=== PATIENT | female | born 1935 | race Caucasian/White ===

== ENCOUNTER 2017-08-19 07:26 | Day surgery (SDC) | payer OTHER ==
[2017-08-02 13:39] VITALS: BMI 42.0
--- NOTE | 2017-08-02 14:19 | PAT Medication Instructions ---
Service Date Aug 02, 2017. Current Home Medication List Amitriptyline Hcl (Elavil), 25 MG PO HS Amlodipine (Norvasc), 5 MG PO QAM Atorvastatin (Lipitor), 40 MG PO HS Calcium/Vitamin D (Os-Carlitos 500 Plus D), 1 TAB PO BID Ferrous Sulfate (Kp Ferrous Sulfate), 1 TAB PO TID Furosemide (Lasix), 40 MG PO QAM Levothyroxine Sodium (Levothyroxine Sodium), 1 TAB PO QAM Lorazepam (Ativan), 0.5 MG PO TID PRN for Anxiety Meclizine Hcl (Meclizine Hcl), 1 TAB PO BID Metoprolol Tartrate (Lopressor) (Lopressor), 25 MG PO BID Nitroglycerin (Nitrostat), 0.4 MG UT PRN Oxybutynin Chloride Er (Ditropan Xl), 10 MG PO QAM Paroxetine (Paxil), 40 MG PO QAM Potassium Ext Rel (Klor-Con), 20 MEQ PO QAM Senna (Senokot), 1 TAB PO UD PRN for Constipation Sennosides-Docusate Sodium (Stool Softener), 1 TAB PO BID Simethicone (Gas-X), 1 TAB PO UD PRN for GAS Warfarin Sod (Coumadin), 2.5 MG PO WED/SAT Warfarin Sodium (Coumadin), 5 MG PO M,T,R,F,SUN Medication Instructions For Your Scheduled Surgery - Check with surgeon and coumadin clinic for instructions: Warfarin Sod (Coumadin), 2.5 MG PO WED/SAT Warfarin Sodium (Coumadin), 5 MG PO M,T,R,F,SUN - Hold the following medications the morning of surgery: Sennosides-Docusate Sodium (Stool Softener), 1 TAB PO BID Simethicone (Gas-X), 1 TAB PO UD PRN for GAS Senna (Senokot), 1 TAB PO UD PRN for Constipation Potassium Ext Rel (Klor-Con), 20 MEQ PO QAM Oxybutynin Chloride Er (Ditropan Xl), 10 MG PO QAM Ferrous Sulfate (Kp Ferrous Sulfate), 1 TAB PO TID Furosemide (Lasix), 40 MG PO QAM Calcium/Vitamin D (Os-Carlitos 500 Plus D), 1 TAB PO BID - Take the following medications the morning of surgery with a sip of water: Paroxetine (Paxil), 40 MG PO QAM Metoprolol Tartrate (Lopressor) (Lopressor), 25 MG PO BID Nitroglycerin (Nitrostat), 0.4 MG UT PRN (if needed) Meclizine Hcl (Meclizine Hcl), 1 TAB PO BID Levothyroxine Sodium (Levothyroxine Sodium), 1 TAB PO QAM Lorazepam (Ativan), 0.5 MG PO TID PRN for Anxiety (if needed) Amlodipine (Norvasc), 5 MG PO QAM - Take the following medications as scheduled the night before surgery: Sennosides-Docusate Sodium (Stool Softener), 1 TAB PO BID Simethicone (Gas-X), 1 TAB PO UD PRN for GAS (if needed) Senna (Senokot), 1 TAB PO UD PRN for Constipation (if needed) Metoprolol Tartrate (Lopressor) (Lopressor), 25 MG PO BID Nitroglycerin (Nitrostat), 0.4 MG UT PRN (if needed) Meclizine Hcl (Meclizine Hcl), 1 TAB PO BID Lorazepam (Ativan), 0.5 MG PO TID PRN for Anxiety (if needed) Ferrous Sulfate (Kp Ferrous Sulfate), 1 TAB PO TID Calcium/Vitamin D (Os-Carlitos 500 Plus D), 1 TAB PO BID Atorvastatin (Lipitor), 40 MG PO HS Amitriptyline Hcl (Elavil), 25 MG PO HS If you have any questions please call us at [phone] or [phone] or [phone]
[2017-08-02 15:34] LABS: BASO % 0.6 %; BASO ABS # 0.03 K/uL (0-0.2); EOS % 7.5 %; EOS ABS # 0.38 K/uL (0-0.5); HEMATOCRIT 39.9 % (37-47); HEMOGLOBIN 13.1 g/dL (12.0-16.0); LYMPH % 33.3 %; MEAN CELL VOLUME 95.5 fL (80-100); MEAN CORPUSCULAR HEMOGLOBIN 31.3 pg (25-34); MEAN CORPUSCULAR HGB CONC 32.8 g/dl (32-36); MEAN PLATELET VOLUME 9.5 fL (7.4-10.4); MONO % 10.4 %; MONO ABS # 0.53 K/uL (0.11-0.59); NEUT % 48.2 %; NEUT ABS # 2.46 K/uL (1.4-6.5); PLATELET COUNT 260 K/uL (130-400); RED CELL DISTRIBUTION WIDTH CV 13.9 % (11.5-14.5); RED CELL DISTRIBUTION WIDTH SD 48.7 fL (36.4-46.3)
[2017-08-02 16:25] LABS: CALCIUM 9.2 mg/dl (8.5-10.1); CREATININE 0.68 mg/dl (0.60-1.20); POTASSIUM 4.2 mmol/L (3.5-5.1)
[~2017-08-19] VITALS: Ht 152.4 cm; Wt 99.2 kg
[~2017-08-19 07:26] MED LIST: AMLO-110 PO; AMT50 PO; ATOR-24 PO; CALC500C70 PO; CMD/25 PO; FERR1TAB13 PO; FRS/40 PO; LEVO75TA5 PO; LORA-741 PO; MECL1TAB42 PO; METO25TA56 PO; NTRGSL/4 UT; OXYB10TA PO; PARO1TAB29 PO; POTA20TA16 PO; SENN-61 PO; SENNTAB23 PO; SIME80CH PO; WARF5TAB90 PO
[2017-08-19] MEDS ORDERED: EpHEDrine SULFATE INJ 50 MG/ML AMP IV PRN (08:00)
[2017-08-19] MEDS ORDERED: ONDANSETRON INJ 2 MG/ML 2 ML VIAL IV PRN (08:00)
[2017-08-19] MEDS ORDERED: ATROPINE SULFATE 0.1 MG/ML 5ML SYR IV PRN (08:00)
[2017-08-19] MEDS ORDERED: FENTANYL CITRATE INJ 50 MCG/1 ML 2 ML VIAL IV PRN (08:00)
[2017-08-19 08:09] VITALS: BP 152/88; PULSE 92; TEMP 36.7; O2SAT 98; Ht 152.4 cm; Wt 99.2 kg
--- NOTE | 2017-08-19 08:10 | History and Physical ---
History & Physical Date Aug 19, 2017. Chief Complaint Hematochezia History of Present Illness The patient is a 81 year old female with complaints of hematochezia. I first saw the patient on 07/18/2017. At that time she described bleeding. She has had hemorrhoids for many years. Over the last month to 2 months the bleeding seemed to have increased in amount. It was occurring with every bowel movement. It occasionally occurred with urination but she didn't not think it accompanied the urine. She had no perianal pain. There was some mild discomfort in the lower abdomen preceding a bowel movement but that resolved after she completed the bowel movement. The amount of blood was small to enough to make the bowl water red. She is on Coumadin having had a pulmonary embolus in the early 1999. She had no diarrhea. She is frequently constipated and was entering regimens of [id number] medications to treat as much as possible. She has had nausea and vomiting on occasion but over the last few weeks that is resolved. She stopped her Coumadin 6 days ago. Over the last 5 days she has had no bleeding whatsoever with her bowel movements. Past Medical/Surgical History Past medical history: Anxiety Depression Hiatal hernia dyslipidemia and GERD Hypertension Hypothyroidism Obesity Phlebitis and thrombophlebitis Pulmonary embolism Reflux esophagitis Past surgical history: Elbow fracture repair Pacemaker placement Revision of ulnar nerve Vaginal hysterectomy Multiple EGDs Multiple colonoscopies Allergies Coded Allergies: Alendronate (Verified Allergy, Unknown, PATIENT UNURE OF RXN, STATES THEY JUST TOLD HER TO STOP IT, 08/02/17) Lisinopril (Verified Allergy, Unknown, DRY COUGH, 08/02/17) Procaine (Verified Allergy, Unknown, TONGUE SWELLING, 08/02/17) Home Medications Scheduled Amitriptyline Hcl (Elavil), 25 MG PO HS Amlodipine (Norvasc), 5 MG PO QAM Atorvastatin (Lipitor), 40 MG PO HS Calcium/Vitamin D (Os-Carlitos 500 Plus D), 1 TAB PO BID Ferrous Sulfate (Kp Ferrous Sulfate), 1 TAB PO TID Furosemide (Lasix), 40 MG PO QAM Levothyroxine Sodium (Levothyroxine Sodium), 1 TAB PO QAM Meclizine Hcl (Meclizine Hcl), 1 TAB PO BID Metoprolol Tartrate (Lopressor) (Lopressor), 25 MG PO BID Nitroglycerin (Nitrostat), 0.4 MG UT PRN Oxybutynin Chloride Er (Ditropan Xl), 10 MG PO QAM Paroxetine (Paxil), 40 MG PO QAM Potassium Ext Rel (Klor-Con), 20 MEQ PO QAM Sennosides-Docusate Sodium (Stool Softener), 1 TAB PO BID Warfarin Sod (Coumadin), 2.5 MG PO WED/SAT Warfarin Sodium (Coumadin), 5 MG PO M,T,R,F,SUN Scheduled PRN Lorazepam (Ativan), 0.5 MG PO TID PRN for Anxiety Senna (Senokot), 1 TAB PO UD PRN for Constipation Simethicone (Gas-X), 1 TAB PO UD PRN for GAS Physical Examination Skin: warm/dry Head: normocephalic Respiratory/Chest: lungs clear, normal breath sounds Cardiovascular: regular rate, rhythm Abdomen / GI: normal bowel sounds, non tender Back: normal inspection Extremities: normal inspection Diagnosis This patient has a history of hematochezia which is resolved after stopping her Coumadin. He has a history of hemorrhoids. Plan of Treatment Lungs performed colonoscopy to be sure there is not more proximal etiology for the bleeding other than the hemorrhoids while she is on Coumadin. I previously explained the procedure and the possible complications and she signed consent form.
[2017-08-19 08:41] LABS: PTT PATIENT 26.3 SECONDS (21.0-31.0)
[2017-08-19] MEDS ORDERED: PROPOFOL IV EMULSION 10 MG/ML 20 ML VIAL IV ONE ×2 (08:48→09:28)
[2017-08-19] MEDS ORDERED: ONDANSETRON INJ 2 MG/ML 2 ML VIAL ONE (09:28)
--- NOTE | 2017-08-19 09:45 | [facility] Post Operative Brief Note ---
Immediate Operative Summary Operative Date Aug 19, 2017. Pre-Operative Diagnosis Hematochezia Post-Operative Diagnosis Polyp ascending colon, diverticulosis of sigmoid Procedure(s) Performed Colonoscopy with Polypectomy Surgeon Dr. Ramon Machado Supervisor Roving Surgeon(s) none Estimated Blood Loss 0 cc Findings See Below See dictation Specimens none per surgeon Drains None Anesthesia Type MAC Complication(s) none Disposition Disposition: SDU
--- NOTE | 2017-08-19 09:47 | Discharge Instructions ---
Endoscopy Patient Instructions Date / Procedure(s) Performed Aug 19, 2017. Colonoscopy Allergy Information Coded Allergies: Alendronate (Verified Allergy, Unknown, PATIENT UNURE OF RXN, STATES THEY JUST TOLD HER TO STOP IT, 08/19/17) Lisinopril (Verified Allergy, Unknown, DRY COUGH, 08/19/17) Procaine (Verified Allergy, Unknown, TONGUE SWELLING, 08/19/17) Discharge Date / Findings Aug 19, 2017. One polyp in the ascending colon and sigmoid diverticulosis Provider Instructions Activity Restrictions - No exercising or heavy lifting for 24 hours. - Do not drink alcohol the day of the procedure. - Do not drive a car or operate machinery until the day after the procedure. - Do not make any important decisions or sign important papers in 24 hours after the procedure. Following Day: - Return to full activity which may include returning to work/school. Diet Start your diet with liquids and light foods (jello, soup, juice, toast). Then eat your usual diet if not nauseated. Treatment For Common After Affects For mild abdominal pain, bloating, or excessive gas: - Rest - Eat lightly - Lie on right side Follow-Up Information Follow-up with Ramon Machado MD as scheduled Anesthesia Information What You Should Know You have had a procedure that required some medicine to reduce anxiety and discomfort. This treatment is called moderate sedation. After receiving the treatment, you may be sleepy, but you will be able to breathe on your own. The effects of the treatment may last for several hours. Follow these instructions along with Activity/Diet recommendations noted above: * Do NOT do anything where dizziness or clumsiness would be dangerous. * Rest quietly at home today, then you can be up and about tomorrow. * Have a responsible person stay with you the rest of today. * You may have had an I.V. today. If so, you may take the dressing off later today. Recommendations Call your doctor if: * Trouble breathing * Continuous vomiting for more than 24 hours * Temperature above 101 degrees * Severe abdominal pain or bloating * Pain not relieved by pain medicine ordered * There is increased drainage or redness from any incision * A large amount of rectal bleeding greater than 2-3 tablespoons. (If you had a polyp/s removed or have hemorrhoids, a small amount of blood - from the rectum is to be expected.) * You have any unanswered questions or concerns. IN THE EVENT OF A SERIOUS EMERGENCY, GO TO THE NEAREST EMERGENCY ROOM Your discharge instructions were prepared by provider Ramon Machado. Patient Instructions Signature Page Shawna Jerry Patient (or Guardian) Signature/Date: I have read and understand the instructions given to me by my caregivers. Caregiver/RN/Doctor Signature/Date: The above-named patient and/or guardian has received patient instructions on this date. + Original Patient Signature Page (only) stays with chart. Please make copy for patient.
[2017-08-19 09:52] VITALS: BP 127/61; PULSE 87; TEMP 36.3; O2SAT 100
[2017-08-19 10:22] VITALS: BP 120/63; PULSE 89; TEMP 36.3; O2SAT 99
--- NOTE | 2017-08-19 10:58 | Anesthesiology Progress Note ---
Anesthesia Post Op Note Date & Time Aug 19, 2017 at 10:58 Vital Signs Pain Intensity: 0 Vital Signs Past 12 Hours Date Time Temp Pulse Resp B/P (MAP) Pulse Ox O2 Delivery O2 Flow Rate FiO2 08/19/17 10:22 36.3 89 18 120/63 99 Room Air 08/19/17 09:52 36.3 87 18 127/61 100 Room Air 08/19/17 08:09 36.7 92 16 152/88 (109) 98 Room Air Notes Mental Status: alert / awake / arousable, participated in evaluation Pt Amnestic to Procedure: Yes Nausea / Vomiting: adequately controlled Pain: adequately controlled Airway Patency, RR, SpO2: stable & adequate BP & HR: stable & adequate Hydration State: stable & adequate Anesthetic Complications: no major complications apparent
--- NOTE | 2017-08-20 11:42 | GI REPORT ---
Procedure Date: 08/19/2017 8:34 AM Procedure: Colonoscopy Indications: Hematochezia Medicines: Propofol per Anesthesia Complications: No immediate complications. Estimated Blood Loss: Estimated blood loss: none. Procedure: Pre-Anesthesia Assessment: - The risks and benefits of the procedure and the sedation options and risks were discussed with the patient. All questions were answered and informed consent was obtained. - Patient identification and proposed procedure were verified prior to the procedure by the physician, the nurse and the blood bank manager. The procedure was verified in the pre-procedure area in the endoscopy suite. - ASA Grade Assessment: III - A patient with severe systemic disease. After I obtained informed consent, the scope was passed under direct vision. Throughout the procedure, the patient's blood pressure, pulse, and oxygen saturations were monitored continuously. The scope was introduced through the anus and advanced to the cecum, identified by appendiceal orifice and ileocecal valve. The colonoscopy was performed without difficulty. The patient tolerated the procedure well. The quality of the bowel preparation was adequate to identify polyps 6 mm and larger in size. Findings: The digital rectal exam was normal. A small polyp was found in the ascending colon. The polyp was sessile. The polyp was removed with a jumbo cold forceps. Resection and retrieval were complete. A few diverticula were found in the sigmoid colon. Non-bleeding internal hemorrhoids were found. The hemorrhoids were Grade I (internal hemorrhoids that do not prolapse). Impression: - One small polyp in the ascending colon, removed with a jumbo cold forceps. Resected and retrieved. - Diverticulosis in the sigmoid colon. Recommendation: - Discharge patient to home. - Return to my office in 2 weeks. - Repeat colonoscopy [day] for surveillance based on pathology results. Ramon Machado M.D. Ramon Machado MD 08/19/2017 9:42:40 AM This report has been signed electronically. Note Initiated On: 08/19/2017 8:34 AM I attest to the content of the Intraoperative Record and orders documented therein, exceptions below
[2018-08-19] MEDS ORDERED: LACTATED RINGER'S 1000ML 1,000 ML IV SCH (06:00)
== END 2017-08-19 09:25 | disposition home or self-care (01) ==
LOC: C.ACU 07:26
PROVIDERS: ATTEND Surgery
DX: K92.1 Melena (principal); D12.2 Benign neoplasm of ascending colon; K57.30 Diverticulosis of large intestine without perforation or abscess without bleeding; K64.8 Other hemorrhoids; I25.10 Atherosclerotic heart disease of native coronary artery without angina pectoris; I48.91 Unspecified atrial fibrillation; I10 Essential (primary) hypertension; E66.01 Morbid (severe) obesity due to excess calories; F32.9 Major depressive disorder, single episode, unspecified; K44.9 Diaphragmatic hernia without obstruction or gangrene; E78.5 Hyperlipidemia, unspecified; K21.0 Gastro-esophageal reflux disease with esophagitis; Z90.710 Acquired absence of both cervix and uterus; Z86.72 Personal history of thrombophlebitis; Z86.711 Personal history of pulmonary embolism; Z86.718 Personal history of other venous thrombosis and embolism; Z95.0 Presence of cardiac pacemaker; Z79.01 Long term (current) use of anticoagulants; Z68.41 Body mass index [BMI] 40.0-44.9, adult